=== PATIENT | male | born 1950 | race Caucasian/White ===

== ENCOUNTER 2017-12-26 18:59 | Emergency (ER) | payer MEDICARE, OTHER ==
[2017-12-26] MEDS ORDERED: Tetan/Diph/Pertus SYR(Tdap)* 0.5 ML SYR(BOOSTRIX) use SYR IM ONE (19:41)
[2017-12-26] MEDS ORDERED: Lidocaine 1%* 5 ML VIAL INJ ONE (21:06)
[2017-12-26] MEDS ORDERED: Lidocaine 1%* 5 ML VIAL ONE (21:08)
--- NOTE | 2017-12-26 21:26 | ED ---
Laceration/Wound HPI - HPI Summary HPI Summary: 67-year-old male presents with a right hand laceration today. He cut it on a harpsichord. The area is bleeding a little bit. His tetanus is not up-to-date. 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 He denies any numbness or tingling. He denies any loss of range of motion. He states the wound no acute opening whenever he moves his thumb. He has no other injury. He denies any foreign body. - History of Current Complaint Stated Complaint: RT HAND LAC Time Seen by Provider: 12/26/17 20:34 Pain Intensity: 3 - Allergy/Home Medications Allergies/Adverse Reactions: Allergies Allergy/AdvReac Type Severity Reaction Status Date / Time No Known Allergies Allergy Verified 12/26/17 19:10 PMH/Surg Hx/FS Hx/Imm Hx Endocrine/Hematology History: Denies: Hx Anticoagulant Therapy Cardiovascular History: Reports: Hx Hypertension Infectious Disease History: No Infectious Disease History: Denies: Traveled Outside the [place] in Last 30 Days - Family History Known Family History: Positive: Hypertension - Social History Alcohol Use: Rare Substance Use Type: Reports: None Smoking Status (MU): Never Smoked Tobacco Review of Systems Negative: Fever Negative: Chest Pain Negative: Shortness Of Breath Positive: Other - right hand laceration All Other Systems Reviewed And Are Negative: Yes Physical Exam Triage Information Reviewed: Yes Vital Signs On Initial Exam: Initial Vitals Temp Pulse Resp BP Pulse Ox 98.1 F 64 19 157/139 97 12/26/17 19:10 12/26/17 19:10 12/26/17 19:10 12/26/17 19:10 12/26/17 19:10 Vital Signs Reviewed: Yes Appearance: Positive: Well-Appearing Skin: Positive: Warm, Dry, Other - 1cm by 1/2cm laceration on right palmar aspect between thumb and index finger Head/Face: Positive: Normal Head/Face Inspection Eyes: Positive: Normal, Conjunctiva Clear Respiratory/Lung Sounds: Positive: Clear to Auscultation, Breath Sounds Present Cardiovascular: Positive: Normal, RRR Musculoskeletal: Positive: Strength/ROM Intact - right hand, Other - good pulses , capillary refill<2 secs, sensation grossly intact Neurological: Positive: Normal Psychiatric: Positive: Normal Procedures - Laceration/Wound Repair 1 Location: Other - right hand laceration Description: Linear Anesthesia: Local, 1.0% Length, Depth and Shape: 1cm by 1/2cm Irrigated w/ Saline (ccs): 100 Laceration/Wound Explored: no foreign body removed Closure: Single Layer Suture Type: Prolene - 5-0 Number of Sutures: 2 Layer Closure?: No Sterile Dressing Applied?: Yes - telfa and dejan Diagnostics - Vital Signs Vital Signs Temp Pulse Resp BP Pulse Ox 12/26/17 19:10 98.1 F 64 19 157/139 97 - Laboratory Lab Statement: Any lab studies that have been ordered have been reviewed, and results considered in the medical decision making process. Laceration Repair Course/Dx - Course Course Of Treatment: 67-year-old male presents with a right hand laceration today. He cut it on a harpsichord. The area is bleeding a little bit. His tetanus is not up-to-date so gave one. 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 He denies any numbness or tingling. He denies any loss of range of motion. He states the wound no acute opening whenever he moves his thumb. He has no other injury. He denies any foreign body. on exam has 1cm laceration on palmar aspect of right hand between thumb and index finger that cleaned and placed 2 sutures in. patient understand and agrees with plan. - Clinical Impression Provider Diagnoses: Laceration of right hand Discharge - Discharge Plan Condition: Good Disposition: HOME Patient Education Materials: Care For Your Stitches (ED) Referrals: No Primary Care Phys,NOPCP [Primary Care Provider] - Additional Instructions: Take Tylenol or ibuprofen for pain Keep area clean and dry for 24 hours Keep dejan on area until started to heal Return to ED or primary in 10-14 days to have sutures removed Return to ED if develop signs of infection such as fever, spreading redness, or pus.
[2017-12-26 21:36] VITALS: BP 130/88
== END 2017-12-26 21:35 | disposition home or self-care (01) ==
LOC: ED 18:59
DX: S61.411A Laceration without foreign body of right hand, initial encounter (principal); W45.8XXA Other foreign body or object entering through skin, initial encounter; Y92.9 Unspecified place or not applicable; Z86.79 Personal history of other diseases of the circulatory system
CPT/HCPCS: 12001; 90471; 90715; 96374; 99281